=== PATIENT | female | born 1985 | race African-American/Black ===

== ENCOUNTER 2017-10-22 18:50 | Observation (INO) | payer MEDICAID ==
[~2017-10-22] VITALS: Ht 165.1 cm; Wt 98.4 kg
[~2017-10-22 18:50] MED LIST: [UNRECOGNIZED DRUG - REMARK]
[2017-10-22] MEDS ORDERED: PNV1TABL76 MT (19:34)
== END 2017-10-22 20:23 | disposition home or self-care (01) ==
LOC: L&D 18:50 → INTOOBSV 18:50
PROVIDERS: ADMIT Obstetrics & Gynecology; ATTEND Obstetrics & Gynecology
DX: O26.893 Other specified pregnancy related conditions, third trimester (principal); R10.9 Unspecified abdominal pain; R19.7 Diarrhea, unspecified; Z3A.34 34 weeks gestation of pregnancy
CPT/HCPCS: 99281; G0378

== ENCOUNTER 2017-11-19 19:10 | Observation (INO) | payer MEDICAID ==
[~2017-11-19] VITALS: Ht 165.1 cm; Wt 102.1 kg
[~2017-11-19 19:10] MED LIST changes: +PNV1TABL76 MT; -[UNRECOGNIZED DRUG - REMARK]
== END 2017-11-19 21:00 | disposition home or self-care (01) ==
LOC: L&D 19:10
PROVIDERS: ADMIT Specialist; ATTEND Specialist
DX: O62.9 Abnormality of forces of labor, unspecified (principal); Z3A.38 38 weeks gestation of pregnancy
CPT/HCPCS: 99281; G0378

== ENCOUNTER 2019-07-23 13:41 | Emergency (ER) | payer MEDICAID, OTHER ==
[~2019-07-23] VITALS: Ht 165.1 cm; Wt 96.0 kg
[2019-07-23 13:49] VITALS: BP 135/94
== END 2019-07-23 18:51 | disposition left against medical advice (07) ==
LOC: ER 13:41
DX: R06.02 Shortness of breath (principal); Z53.21 Procedure and treatment not carried out due to patient leaving prior to being seen by health care provider